=== PATIENT | male | born 1970 | race Caucasian/White ===

== ENCOUNTER 2022-09-11 17:49 | Emergency (ER) | payer SELFPAY ==
[2022-09-11 18:12] VITALS: BP 207/106; PULSE 93; RESP 18; TEMP 36.3; O2SAT 97; BMI 39.5
--- NOTE | 2022-09-11 18:30 | ED.LOWEXIN ---
HPI - Extremity Injury (Lower) General Time Seen by Provider: 18:31 Date Seen: 09/11/22 Chief Complaint: Extremity Pain/Injury, Lower Stated Complaint: Right calf pain, heard snap Time Seen by Provider: 09/11/22 18:17 Source: patient and RN notes reviewed Limitations: no limitations History of Present Illness HPI Narrative: Patient is a 51-year-old male coming in with right calf pain. It hurts in medial portion of the lateral gastrocnemius muscle in the mid calf. He was helping his daughter move to [place] from [place]. They were moving a refrigerator up stairs. His son was pulling a mishel and patient was pushing. He planted with his right leg and was pushing the refrigerator up the stairs and felt a pop and sudden pain in his mid calf. His mother is a physician in [place], they did face time. She stated he should be evaluated. She states she will get him an MRI when he gets back home. No numbness tingling, nothing else was injured. He is icing the mid calf as ice pack was provided by nursing staff. complaint: leg injury Related Data Allergies Allergy/AdvReac Type Severity Reaction Status Date / Time No Known Drug Allergies Allergy Verified 09/11/22 18:11 Review of Systems Narrative: As per HPI PFSH PFSH Social History Smoking Status: Never smoker Do you use any of these nicotine containing products: None Second hand tobacco smoke exposure: Yes How often do you have a drink containing alcohol: monthly or less How many standard drinks containing alcohol do you have on a typical day: 1 or 2 How often do you have six or more drinks on one occasion: Never AUDIT-C Alcohol total score: 1 Non-prescribed substance use: denies use service: Yes Exam Const: Vital Signs, click to edit/add: Vital Signs - 24 hr 09/11/22 18:12 09/11/22 19:09 Temperature 97.3 F L 97.3 F L Pulse Rate [Pulse Oximeter] 93 93 Respiratory Rate 18 18 Blood Pressure [Le ft Forearm] 207/106 H 187/99 H Pulse Oximetry 97 Oxygen Delivery Me thod Room Air Documenting provider has reviewed patient's vital signs: yes Common normals: no apparent distress, oriented x3, no limitations, healthy appearing, alert and well nourished General appearance: cooperative and comfortable Other: Patient has his right leg up in the bed flexed at the knee. He is palpably tender there seems to be a palpable defect in the lateral body of the gastrocnemius muscle more medial on the calf. Achilles test intact. There is no swelling. Neurovascular is intact. Nothing else clinically on exam to suggest anything other than partial gastrocnemius muscle tear. Neuro: Common normals: oriented x3 Sensorium/orientation: alert Course Course Hospital Course: Patient will be staying in a hotel here tonight, son will be driving back to [place] tomorrow. He has had ankle surgery on this leg and there indeed was well-healed scar that I did see. He used tramadol for that surgery and he is wondering if he can have some of that. I certainly can give him a few pills to get back home. We did discuss immobilization, he might fine some comfort with a cam walker if we can find something to fit him. Recommended crutches but he is declining this. 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 I did look up patient on [place] prescribing website and did look up [place] on there, he has no prescriptions that I can find. Have give 15 tablets from [facility] of tramadol 50mg tablets, smallest amount available to give. Vital Signs Vital signs: Initial Vital Signs Temperature 97.3 F L 09/11/22 18:12 Temperature Source Temporal Artery Scan 09/11/22 18:12 Pulse Rate 93 09/11/22 18:12 Pulse Rhythm 09/11/22 18:12 Respiratory Rate 18 09/11/22 18:12 Blood Pressure 207/106 H 09/11/22 18:12 Blood Pressure Mean 139 09/11/22 18:12 Blood Pressure Position Sitting 09/11/22 18:12 Pulse Oximetry 97 09/11/22 18:12 Oxygen Delivery Method 09/11/22 18:12 Vital Signs Temperature 97.3 F L 09/11/22 18:12 Pulse Rate 93 09/11/22 18:12 Respiratory Rate 18 09/11/22 18:12 Blood Pressure 207/106 H 09/11/22 18:12 Pulse Oximetry 97 09/11/22 18:12 Oxygen Delivery Method 09/11/22 18:12 Temperature 97.3 F L 09/11/22 19:09 Pulse Rate 93 09/11/22 19:09 Respiratory Rate 18 09/11/22 19:09 Blood Pressure 187/99 H 09/11/22 19:09 Pulse Oximetry 97 09/11/22 18:12 Oxygen Delivery Method 09/11/22 18:12 Critical Care Time Critical Care Time Critical Care Time: No Discharge Plan Discharge Clinical Impression: Gastrocnemius muscle tear Condition: Stable Instructions: R.I.C.E. Treatment (ED) Additional Instructions: Recommend nonweightbearing on this extremity, ice elevate, follow up at home for further imaging with MRI or as per orthopedist recommendations. You can use Tylenol and ibuprofen per bottle directions as needed for pain control baseline. Prescription for tramadol from [facility] provided. Stand Alone Forms: [employer] Info Instructions
[2022-09-11 19:09] VITALS: BP 187/99; PULSE 93; RESP 18; TEMP 36.3
== END 2022-09-11 19:09 | disposition home or self-care (01) ==
LOC: ED 18:54
PROVIDERS: Emergency Provider Family Medicine
DX: S86.811A Strain of other muscle(s) and tendon(s) at lower leg level, right leg, initial encounter (principal); X50.0XXA Overexertion from strenuous movement or load, initial encounter; X50.9XXA Other and unspecified overexertion or strenuous movements or postures, initial encounter; Y93.89 Activity, other specified; Y92.019 Unspecified place in single-family (private) house as the place of occurrence of the external cause; Y99.9 Unspecified external cause status
CPT/HCPCS: 99282; 99283